=== PATIENT | female | born 1950 | race Caucasian/White ===

== ENCOUNTER → 2016-05-07 | Day surgery (SDC) | payer MEDICARE, MEDICAID ==
[~2016-05-07] VITALS: Ht 157.5 cm; Wt 58.1 kg
[~2016-05-07] MED LIST: ADENOSINE 90 MG/30 ML INJ IV ONE; ANGIOMAX 250 MG VIAL IV ONE; ASPI81CH43 PO; EPTIFIBATIDE INJ (2MG/ML) 10ML VIAL IV ONE; HYDROcodone-ACET 5/325MG TAB ONE; HYDROcodone-ACET 5/325MG TAB PO ONE; IODIXANOL 320MG/ML 100ML BTL IV ONE; LIDOCAINE 2%HCL (LOCAL ANESTH.) INJ 20ML MDV ONE; MIDAZOLAM HCL 1MG/1ML-2 ML VIAL ONE; NITR0.4S29 SL; SODIUM CHL 0.9% 50 ML ONE; VERAPAMIL 2.5MG/ML INJ 2ML VIAL IV ONE; fentaNYL CITRATE 100 MCG/2 ML VL ONE; guaiFENesin-DEXTROMETHORPHAN 5ML SYR PO ONE
== END | disposition home or self-care (01) ==
LOC: CATH 07:06
PROVIDERS: ATTEND Internal Medicine
DX: I20.0 Unstable angina (principal); Z82.49 Family history of ischemic heart disease and other diseases of the circulatory system
CPT/HCPCS: 93458; C1769; C1887; J0153; J0583; J1644; J2250; J3010; J7030; Q9967; 99152

== ENCOUNTER 2018-08-12 14:19 | Inpatient (IN) | payer MEDICAID, MEDICARE ==
[~2018-08-12] VITALS: Ht 157.5 cm; Wt 56.7 kg
[~2018-08-12 14:19] MED LIST changes: -ADENOSINE 90 MG/30 ML INJ IV ONE; -ANGIOMAX 250 MG VIAL IV ONE; -ASPI81CH43 PO; -EPTIFIBATIDE INJ (2MG/ML) 10ML VIAL IV ONE; +GABA300C PO; +HYDR-531 PO; -HYDROcodone-ACET 5/325MG TAB ONE; -HYDROcodone-ACET 5/325MG TAB PO ONE; -IODIXANOL 320MG/ML 100ML BTL IV ONE; -LIDOCAINE 2%HCL (LOCAL ANESTH.) INJ 20ML MDV ONE; +MELO1TAB73 PO; -MIDAZOLAM HCL 1MG/1ML-2 ML VIAL ONE; -SODIUM CHL 0.9% 50 ML ONE; -VERAPAMIL 2.5MG/ML INJ 2ML VIAL IV ONE; -fentaNYL CITRATE 100 MCG/2 ML VL ONE; -guaiFENesin-DEXTROMETHORPHAN 5ML SYR PO ONE
[2018-08-12 15:00] LABS: Basophils # (auto) 0.1 uL; Basophils % (auto) 0.7 % (0.0-2.0); Eosinophils # (auto) 0 uL; Eosinophils % (auto) 0.5 % (0.0-7.0); Hematocrit 42.7 % (36.0-46.0); Hemoglobin 14.1 g/dL (12.2-16.2); Lymphocytes # (auto) 2.7 uL; Lymphocytes % (auto) 28.9 % (10.0-50.0); Monocytes # (auto) 0.8 uL; Monocytes % (auto) 9.1 % (0.0-12.0); Neutrophils # (auto) 5.7 uL; Neutrophils % (auto) 60.8 % (37.0-80.0); Platelet Count (auto) 231 10^3/uL (140-450); Red Blood Cells 5.02 10^6/uL (4.0-5.20); Red Cell Distribution Width 14.4 % (11.8-14.3); White Blood Cell 9.3 10^3/uL (4.4-10.8)
[2018-08-12 15:24] LABS: Chloride 110 mmol/L (98-107); Potassium 3.8 mmol/L (3.5-5.1); Sodium 140 mmol/L (136-145)
[2018-08-12 15:35] LABS: Alanine Aminotransferase 23 U/L (13-56); Albumin 3.4 g/dL (3.4-5.0); Alkaline Phosphatase 106 U/L (45-117); Anion Gap 7 (5-15); Aspartate Aminotransferase 17 U/L (15-37); BUN/Creatinine Ratio 8.5; Bilirubin, Total 0.5 mg/dL (0.2-1.0); Blood Urea Nitrogen 8 mg/dL (7-18); Calcium 8.7 mg/dL (8.5-10.1); Carbon Dioxide 23 mmol/L (21-32); GFR African American 76 mL/min; GFR Non-African American 63 mL/min; Glucose 94 mg/dL (74-106); Magnesium 2.4 mg/dL (1.6-2.6); Total Protein 7.6 g/dL (6.4-8.2)
[2018-08-12] MEDS ORDERED: ASPirin-EC 325mg tab PO ONE (17:30)
[2018-08-12] MEDS ORDERED: KETOROLAC TROMETH 30 MG/ML 1ML VIAL IV ONE (17:30)
[2018-08-12] MEDS ORDERED: ONDANSETRON HCL 4 MG/2 ML VIAL IV PRN (20:00)
[2018-08-12] MEDS ORDERED: ACETAMINOPHEN 500 MG TAB PO PRN (20:00)
[2018-08-12] MEDS ORDERED: HYDROcodone-ACET 5/325MG TAB PO PRN (20:00)
[2018-08-12] MEDS ORDERED: ALBUTEROL SULF 2.5 MG/0.5ML(0.5%) NEB SOLN NEB PRN (20:00)
[2018-08-12] MEDS ORDERED: NITROGLYCERIN 0.4 MG SL TAB SL PRN (20:00)
[2018-08-12] MEDS ORDERED: MORPHINE SULF INJ 2 MG/ML SYRINGE 1ML IV PRN ×2 (20:00)
[2018-08-12] MEDS ORDERED: hydrALAZINE HCL 20 MG/ML VL IV PRN (20:00)
[2018-08-12] MEDS ORDERED: NITROGLYCERIN 0.2MG/HR TOPICAL PATCH TD ONE (20:00)
[2018-08-12] MEDS ORDERED: IPRATROPIUM BROM 0.5 MG/2.5ML INH SOL NEB PRN (20:00)
[2018-08-12 21:00] VITALS: BP 158/87
--- NOTE | 2018-08-12 21:16 | NUR ---
Telemetry admit from ER JOSE CHANEL admitted to Telemetry unit. Patient oriented to NIYA WILHELM, RN primary RN, unit, room, bed, and unit policies regarding patient care and visiting hours. Patient now on continuous telemetry monitoring, tele box # 6 and telemetry reading on arrival to unit is SR. Patient weighed by bedscale and encouraged to call if they need something. All questions and concerns addressed, patient verbalized understanding. Family at bedside. Safety maintained with bed rails upx2, locked and in lowest position with call jc within reach.
[2018-08-12] MEDS: METOPROLOL TARTRATE 25 MG TAB PO SCH (21:42)
[2018-08-12] MEDS: ATORVASTATIN 20 MG TAB PO SCH (21:42)
[2018-08-12 21:45] VITALS: BP 158/87
--- NOTE | 2018-08-12 22:00 | NUR ---
MED REC PATIENT UNABLE TO RECALL LIST OF HOME MEDICATIONS. PATIENT'S FIANCE WILL BRING IN LIST OF HOME MEDICATIONS IN AM.
--- NOTE | 2018-08-12 23:00 | NUR ---
ELEVATED BP 2129 PATIENT'S BP 158/87 HR 82 ADMINISTERED SCHEDULED METOPROLOL AT 2142. NO S/S DISTRESS, WILL CONTINUE TO MONITOR. 2299 REASSESSMENT BP 163/95 HR 70. ADMINISTERED HYDRALAZINE AT 2306. PATIENT C/O CHEST PAIN "COMING BACK", 01/21 PAIN LEVEL. ADMINISTERED MORPHINE. WILL CONTINUE TO MONITOR. Addendum: 08/13/18 at 0012 by NIYA WILHELM RN RN REASSESSMENT BP 126/73 HR 72. PT'S PAIN 10/21, TOLERABLE. NO S/S DISTRESS. WILL CONTINUE TO MONITOR.
[2018-08-13] VITALS (7 sets, daily range): BP systolic 108–163; BP diastolic 54–95
[2018-08-13 06:58] LABS: Basophils # (auto) 0 uL; Basophils % (auto) 0.4 % (0.0-2.0); Eosinophils # (auto) 0.1 uL; Eosinophils % (auto) 1.2 % (0.0-7.0); Hematocrit 41.9 % (36.0-46.0); Hemoglobin 13.8 g/dL (12.2-16.2); Lymphocytes # (auto) 2.2 uL; Lymphocytes % (auto) 30.9 % (10.0-50.0); Mean Corpuscular Hemoglobin 27.8 pg (28.0-32.0); Mean Corpuscular Hgb Conc. 32.9 g/dL (32.0-36.0); Mean Corpuscular Volume 84.5 fL (80.0-100.0); Monocytes # (auto) 0.6 uL; Monocytes % (auto) 8.1 % (0.0-12.0); Neutrophils # (auto) 4.2 uL; Neutrophils % (auto) 59.4 % (37.0-80.0); Nucleated Red Blood Cells % 0.1 %; Platelet Count (auto) 219 10^3/uL (140-450); Red Blood Cells 4.96 10^6/uL (4.0-5.20); Red Cell Distribution Width 14.3 % (11.8-14.3); White Blood Cell 7.1 10^3/uL (4.4-10.8)
[2018-08-13 07:07] LABS: Magnesium 2.4 mg/dL (1.6-2.6)
[2018-08-13 07:09] LABS: INR 0.93 (0.9-1.15); Partial Thromboplastin Time 30.6 sec (23.78-33.04)
[2018-08-13 07:14] LABS: Potassium 3.6 mmol/L (3.5-5.1)
[2018-08-13 07:17] LABS: Calcium 8.5 mg/dL (8.5-10.1)
--- NOTE | 2018-08-13 07:31 | NUR ---
Closing Shift Note Endorsed care to day shift RN. Patient resting in bed, no s/s distress.
--- NOTE | 2018-08-13 08:00 | NUR ---
AWAKE ALERT ORIENTED TIMES 4 DENIES ANY CHEAT PAIN OR SHORTNESS OF BREATH. STATES HER TEST PILOT IS DR PUGH AND HIS OFFICE TOLD HER HE WILL NOT BE BACK UNTIL FRIDAY. I INFORMED HER THAT ANOTHER TEST PILOT, DR. SIMS, WILL BE SEEING HER . SHE VERBALIZED UNDERSTANDING.
--- NOTE | 2018-08-13 08:45 | NUR ---
STATED SHE HAS A HEADACHE 09/21. MEDICATED WITH TYLENOL.
[2018-08-13] MEDS: METOPROLOL TARTRATE 25 MG TAB PO SCH ×2 (10:00→22:00)
[2018-08-13] MEDS: LISINOPRIL 10 MG TAB PO SCH (10:00)
--- NOTE | 2018-08-13 10:00 | NUR ---
ECHOCARDIOGRAM COMPLETED AT BEDSIDE.
--- NOTE | 2018-08-13 11:31 | NUR ---
ASKED HER TO GET A LIST OF HER HOME MEDICATION SO I CAN NOTIFY THE MD.
[2018-08-13] MEDS: ASPirin-EC 81 mg tab PO SCH (11:32)
[2018-08-13] MEDS: PANTOPRAZOLE 40 MG TAB PO SCH (11:32)
[2018-08-13] MEDS ORDERED: MELO1TAB73 PO (13:18)
[2018-08-13] MEDS ORDERED: CHOL20007 PO (13:18)
[2018-08-13] MEDS ORDERED: DIAZ2TAB PO (13:18)
[2018-08-13] MEDS ORDERED: SENN1TAB14 PO (13:19)
[2018-08-13] MEDS ORDERED: PANT40T PO (13:19)
[2018-08-13] MEDS ORDERED: NITR0.4S29 SL (13:19)
--- NOTE | 2018-08-13 17:32 | NUR ---
DR SIMS AT BEDSIDE FOR CARDIOLOGY CONSULT
--- NOTE | 2018-08-13 18:38 | NUR ---
PT ASSESSED FOR PRN TX AT THIS TIME. NO ACUTE RESP DISTRESS NOTED. TX IS NOT INDICATED AT THIS TIME. PT AND STAFF ARE AWARE TO PAGE IF PRN TX IS NEEDED. HR 78 RR 20 100% ON ROOM AIR. B/S ARE CLEAR BUT DECREASED.
--- NOTE | 2018-08-13 19:20 | NUR ---
Opening Shift Note Received report from Lety PETER. Assumed care of patient, awake and alert. No S/S of distress/SOB or pain. Instructed on POC and to call for assist PRN, will continue to monitor for changes Q1hr and PRN.
[2018-08-13] MEDS: ATORVASTATIN 20 MG TAB PO SCH (22:02)
[2018-08-14 05:36] VITALS: BP 141/69
--- NOTE | 2018-08-14 07:04 | NUR ---
Patient stable the whole shift, no complaints made. endorsed care to Lety PETER.
[2018-08-14 07:46] VITALS: BP 108/79
--- NOTE | 2018-08-14 08:00 | NUR ---
NO CHEST PAIN REQUESTING IV TO BE REMOVED. I REMOVED IV CATHETER INTACT DRESSING APPLIED TO SITE .
--- NOTE | 2018-08-14 08:30 | NUR ---
REQUESTING TO BE DISCHARGED. INFORMED HER THAT DR RITCHIE WILL SEE HER TODAY.
[2018-08-14 09:00] VITALS: BP 143/83
--- NOTE | 2018-08-14 09:24 | NUR ---
RT NOTE: WENT TO PTS ROOM TO ASSES FOR PRN BREATHING TX, PT WAS NOT IN ROOM AT THIS TIME. WILL TRY AGAIN AT A LATER TIME.
[2018-08-14] MEDS: ASPirin-EC 81 mg tab PO SCH (10:24)
[2018-08-14 10:25] VITALS: BP 143/83
[2018-08-14] MEDS: PANTOPRAZOLE 40 MG TAB PO SCH (10:25)
[2018-08-14] MEDS: METOPROLOL TARTRATE 25 MG TAB PO SCH (10:25)
[2018-08-14] MEDS: LISINOPRIL 10 MG TAB PO SCH (10:26)
[2018-08-14] MEDS ORDERED: ATO40T PO (10:40)
== END 2018-08-14 11:30 | disposition home or self-care (01) | DRG 303 ==
LOC: ER 14:19 → TELE 19:57 → TELE-EAST 21:15
PROVIDERS: ADMIT Nurse Practitioner Acute Care; ATTEND Family Medicine
DX: I25.110 Atherosclerotic heart disease of native coronary artery with unstable angina pectoris (principal); J44.9 Chronic obstructive pulmonary disease, unspecified; E78.5 Hyperlipidemia, unspecified; F17.200 Nicotine dependence, unspecified, uncomplicated; G89.29 Other chronic pain; I10 Essential (primary) hypertension; E78.00 Pure hypercholesterolemia, unspecified; K21.9 Gastro-esophageal reflux disease without esophagitis; M41.9 Scoliosis, unspecified; Z71.6 Tobacco abuse counseling; Z82.49 Family history of ischemic heart disease and other diseases of the circulatory system; Z95.5 Presence of coronary angioplasty implant and graft
CPT/HCPCS: 36415; 71046; 80048; 80053; 80061; 83735; 84443; 84484; 85025; 85610; 85730; 86141; 93005; 93306; 96374; G0378; J1885